=== PATIENT | female | born 1995 | race African-American/Black ===

== ENCOUNTER 2022-09-20 12:42 | Outpatient (CLI) | payer OTHER, SELFPAY ==
--- NOTE | ~2022-09-20 | XR_ITS ---
XR lumbar spine 2-3V DATE: 09/20/2022 13:08 INDICATION: Chronic back pain TECHNIQUE: AP, lateral, coned lateral lumbosacral views COMPARISON: None FINDINGS: There is a transitional lumbosacral vertebra, which may be a source of chronic back pain. No fracture or bone destruction or spondylolisthesis. The lumbar pedicles are intact. The sacroiliac joints are intact. IMPRESSION: Transitional lumbosacral vertebra Reviewed, dictated and finalized at location A.
== END 2022-09-20 12:43 | disposition home or self-care (01) ==
PROVIDERS: PCP Physician Assistant; Visit Provider Physician Assistant
DX: G89.29 Other chronic pain (principal)
CPT/HCPCS: 72100